=== PATIENT | female | born 1950 | race Caucasian/White ===

== ENCOUNTER 2016-10-19 19:22 | Emergency (ER) | payer MEDICARE ==
[~2016-10-19] VITALS: Ht 167.6 cm; Wt 80.0 kg
[2016-10-19 19:53] LABS: URINE BILIRUBIN - DIPSTICK NEGATIVE (NEGATIVE); URINE BLOOD DIPSTICK MODERATE (NEGATIVE); URINE CLARITY SLIGHT CLOUDY; URINE COLOR YELLOW; URINE GLUCOSE - DIPSTICK NEGATIVE (NEGATIVE); URINE KETONE NEGATIVE (NEGATIVE); URINE NITRITE - DIPSTICK NEGATIVE (Negative); URINE PROTEIN - DIPSTICK NEGATIVE (NEG-TRACE); URINE SPECIFIC GRAVITY <=1.005; URINE UROBILINOGEN - DIPSTICK 0.2 E.U./dL (0.2)
[2016-10-19 19:54] LABS: URINE LEUK ESTERASE LARGE (NEGATIVE)
[2016-10-19 19:58] LABS: URINE SQUAMOUS EPITHELIAL CELL FEW EPI/hpf (0-FEW); URINE WBC 20-50 WBC/hpf (0-5)
[2016-10-19 19:59] LABS: URINE BACTERIA FEW hpf
[2016-10-19] MEDS ORDERED: CEFTIN500 MG PO (20:51)
[2016-10-19] MEDS ORDERED: PYRIDIUM200 MG PO (20:51)
[2016-10-19 21:10] VITALS: BP 149/74
== END 2016-10-19 21:10 | disposition home or self-care (01) ==
LOC: ED 19:22
PROVIDERS: Emergency Medicine
DX: N39.0 Urinary tract infection, site not specified (principal); Z87.440 Personal history of urinary (tract) infections

== ENCOUNTER 2020-01-29 16:31 | Emergency (ER) | payer MEDICARE ==
[~2020-01-29] VITALS: Ht 167.6 cm; Wt 76.0 kg
[~2020-01-29 16:31] MED LIST: CEFTIN500 MG PO; PYRIDIUM200 MG PO
[2020-01-29 16:54] LABS: URINE BILIRUBIN - DIPSTICK NEGATIVE (NEGATIVE); URINE BLOOD DIPSTICK LARGE (NEGATIVE); URINE COLOR YELLOW; URINE GLUCOSE - DIPSTICK NEGATIVE (NEGATIVE); URINE KETONE NEGATIVE (NEGATIVE); URINE LEUK ESTERASE LARGE (NEGATIVE); URINE NITRITE - DIPSTICK NEGATIVE (Negative); URINE PH 5.5 (4.5-8.0); URINE PROTEIN - DIPSTICK NEGATIVE (NEG-TRACE); URINE SPECIFIC GRAVITY 1.015; URINE UROBILINOGEN - DIPSTICK 0.2 E.U./dL (0.2)
[2020-01-29 17:00] LABS: URINE SQUAMOUS EPITHELIAL CELL FEW EPI/hpf (0-FEW); URINE WBC >100 WBC/hpf (0-5)
[2020-01-29] MEDS ORDERED: OMNICEF300 M1 PO ×2 (17:19→17:25)
[2020-01-29 17:22] VITALS: BP 142/69
== END 2020-01-29 17:29 | disposition home or self-care (01) ==
LOC: ED 16:31
PROVIDERS: Emergency Medicine
DX: N39.0 Urinary tract infection, site not specified (principal); B96.1 Klebsiella pneumoniae [K. pneumoniae] as the cause of diseases classified elsewhere; Z16.12 Extended spectrum beta lactamase (ESBL) resistance; Z87.440 Personal history of urinary (tract) infections

== ENCOUNTER 2020-10-21 20:04 | Emergency (ER) | payer MEDICARE ==
[~2020-10-21] VITALS: Ht 167.6 cm; Wt 83.6 kg
[~2020-10-21 20:04] MED LIST changes: +OMNICEF300 M1 PO
[2020-10-21 20:36] LABS: URINE BILIRUBIN - DIPSTICK NEGATIVE (NEGATIVE); URINE BLOOD DIPSTICK NEGATIVE (NEGATIVE); URINE COLOR YELLOW; URINE GLUCOSE - DIPSTICK NEGATIVE (NEGATIVE); URINE KETONE NEGATIVE (NEGATIVE); URINE PH 5.5 (4.5-8.0); URINE PROTEIN - DIPSTICK NEGATIVE (NEG-TRACE); URINE SPECIFIC GRAVITY <=1.005; URINE UROBILINOGEN - DIPSTICK 0.2 E.U./dL (0.2)
[2020-10-21 20:38] LABS: URINE LEUK ESTERASE SMALL (NEGATIVE); URINE NITRITE - DIPSTICK NEGATIVE (Negative)
[2020-10-21 20:42] LABS: URINE BACTERIA FEW hpf; URINE SQUAMOUS EPITHELIAL CELL FEW EPI/hpf (0-FEW)
[2020-10-21] MEDS ORDERED: OMNICEF300 MG PO (20:55)
[2020-10-21 21:15] VITALS: BP 133/67
== END 2020-10-21 21:15 | disposition home or self-care (01) ==
LOC: ED 20:04
PROVIDERS: Family Medicine
DX: N39.0 Urinary tract infection, site not specified (principal); B96.20 Unspecified Escherichia coli [E. coli] as the cause of diseases classified elsewhere; Z87.440 Personal history of urinary (tract) infections

== ENCOUNTER 2021-03-10 20:42 | Emergency (ER) | payer MEDICARE ==
[~2021-03-10] VITALS: Ht 167.6 cm; Wt 82.0 kg
[~2021-03-10 20:42] MED LIST changes: +OMNICEF300 MG PO
[2021-03-10 21:44] LABS: URINE BILIRUBIN - DIPSTICK NEGATIVE (NEGATIVE); URINE BLOOD DIPSTICK TRACE-INTACT (NEGATIVE); URINE COLOR YELLOW; URINE GLUCOSE - DIPSTICK NEGATIVE (NEGATIVE); URINE KETONE NEGATIVE (NEGATIVE); URINE PROTEIN - DIPSTICK NEGATIVE (NEG-TRACE); URINE SPECIFIC GRAVITY <=1.005; URINE UROBILINOGEN - DIPSTICK 0.2 E.U./dL (0.2)
[2021-03-10 21:45] LABS: URINE LEUK ESTERASE SMALL (NEGATIVE); URINE NITRITE - DIPSTICK NEGATIVE (Negative)
[2021-03-10 21:58] LABS: URINE BACTERIA FEW hpf; URINE SQUAMOUS EPITHELIAL CELL FEW EPI/hpf (0-FEW); URINE WBC 20-50 WBC/hpf (0-5)
[2021-03-10] MEDS ORDERED: OMNICEF300 MG PO (22:21)
[2021-03-10 22:34] VITALS: BP 180/82
== END 2021-03-10 22:46 | disposition home or self-care (01) ==
LOC: ED 20:42
PROVIDERS: Family Medicine
DX: N39.0 Urinary tract infection, site not specified (principal); G40.909 Epilepsy, unspecified, not intractable, without status epilepticus; Z87.440 Personal history of urinary (tract) infections

== ENCOUNTER 2023-10-18 18:56 | Emergency (ER) | payer MEDICARE ==
[~2023-10-18] VITALS: Ht 167.6 cm; Wt 68.0 kg
[~2023-10-18 18:56] MED LIST changes: +OMNI-PAC300 MG PO
[2023-10-18 19:23] LABS: URINE BILIRUBIN - DIPSTICK Negative (NEGATIVE); URINE BLOOD DIPSTICK Negative (NEGATIVE); URINE COLOR Straw; URINE GLUCOSE - DIPSTICK Negative (NEGATIVE); URINE KETONE Negative (NEGATIVE); URINE LEUK ESTERASE Negative (NEGATIVE); URINE NITRITE - DIPSTICK Negative (Negative); URINE PROTEIN - DIPSTICK Negative (NEG-TRACE); URINE UROBILINOGEN - DIPSTICK 0.2 E.U./dL (0.2)
[2023-10-18] MEDS ORDERED: NITROFURANTOIN 100 MG/CAP PO ONE (19:30)
[2023-10-18] MEDS ORDERED: PHENAZOPYRIDINE HCL 100 MG/TAB PO ONE (19:30)
[2023-10-18] MEDS ORDERED: PHENAZOPYRIDIN100 M1 PO (19:58)
[2023-10-18 20:04] VITALS: BP 154/88
== END 2023-10-18 20:04 | disposition home or self-care (01) ==
LOC: ED 18:56
PROVIDERS: Nurse Practitioner
DX: R30.0 Dysuria (principal); G40.909 Epilepsy, unspecified, not intractable, without status epilepticus; Z87.440 Personal history of urinary (tract) infections

== ENCOUNTER 2024-04-24 14:43 | Emergency (ER) | payer MEDICARE ==
[~2024-04-24] VITALS: Ht 167.6 cm; Wt 67.0 kg
[~2024-04-24 14:43] MED LIST changes: +PHENAZOPYRIDIN100 M1 PO
[2024-04-24 14:54] VITALS: BP 192/88
[2024-04-24 14:55] VITALS: BP 195/88
[2024-04-24 15:00] VITALS: BP 176/87
[2024-04-24] MEDS ORDERED: LIDOcaine HCl 1% (Local Anesth.) 20 ML VIAL IM STA (15:11)
[2024-04-24 15:15] VITALS: BP 175/89
[2024-04-24] MEDS ORDERED: cefTRIAXone SODIUM 1 GM/VIAL SDV IM ONE (15:15)
[2024-04-24 15:27] VITALS: BP 176/87
== END 2024-04-24 15:27 | disposition home or self-care (01) ==
LOC: ED 14:43
DX: N39.0 Urinary tract infection, site not specified (principal); G40.909 Epilepsy, unspecified, not intractable, without status epilepticus; Z87.440 Personal history of urinary (tract) infections
CPT/HCPCS: J0696